=== PATIENT | female | born 1990 | race Two or more races ===

== ENCOUNTER 2018-04-04 20:00 | Observation (INO) | payer MEDICAID ==
[~2018-04-04 20:00] MED LIST: GLYB5TAB8 PO
[2018-04-04] MEDS ORDERED: GLYB2.5T8 PO (22:04)
== END 2018-04-04 21:35 | disposition home or self-care (01) | DRG 566 ==
LOC: LDRP 20:00
PROVIDERS: ADMIT Specialist; ATTEND Specialist
DX: O24.419 Gestational diabetes mellitus in pregnancy, unspecified control (principal); O26.893 Other specified pregnancy related conditions, third trimester; R10.9 Unspecified abdominal pain; Z3A.36 36 weeks gestation of pregnancy
CPT/HCPCS: 59025; 76818; 81002; 82948; 82962; G0378

== ENCOUNTER 2018-04-06 19:52 | Observation (INO) | payer MEDICAID ==
[~2018-04-06 19:52] MED LIST changes: +GLYB2.5T8 PO; -GLYB5TAB8 PO
== END 2018-04-06 21:35 | disposition home or self-care (01) | DRG 566 ==
LOC: LDRP 19:52
PROVIDERS: ADMIT Specialist; ATTEND Specialist
DX: O24.419 Gestational diabetes mellitus in pregnancy, unspecified control (principal); Z3A.36 36 weeks gestation of pregnancy
CPT/HCPCS: 59025; 76818; 81002; 82948; G0378

== ENCOUNTER 2018-04-11 20:08 | Observation (INO) | payer MEDICAID ==
[2018-04-11] MEDS ORDERED: PREN-153 OR (21:33)
== END 2018-04-11 21:11 | disposition home or self-care (01) | DRG 566 ==
LOC: LDRP 20:08
PROVIDERS: ADMIT Obstetrics & Gynecology; ATTEND Obstetrics & Gynecology
DX: O24.419 Gestational diabetes mellitus in pregnancy, unspecified control (principal); O62.9 Abnormality of forces of labor, unspecified; Z3A.37 37 weeks gestation of pregnancy
CPT/HCPCS: 59025; 76818; 81002; 82948; 82962; G0378

== ENCOUNTER 2018-04-15 20:36 | Observation (INO) | payer MEDICAID ==
[~2018-04-15 20:36] MED LIST changes: +PREN-153 OR
== END 2018-04-15 21:50 | disposition home or self-care (01) | DRG 563 ==
LOC: LDRP 20:36
PROVIDERS: ADMIT Specialist; ATTEND Specialist
DX: O60.03 Preterm labor without delivery, third trimester (principal); Z3A.37 37 weeks gestation of pregnancy
CPT/HCPCS: 59025; 76818; 81002; 82948; 82962; G0378

== ENCOUNTER 2018-04-18 19:46 | Observation (INO) | payer MEDICAID | END 2018-04-18 19:55 | disposition home or self-care (01) | DRG 566 | LOC: LDRP 19:46 | PROVIDERS: ADMIT Specialist; ATTEND Specialist | DX: O24.419 Gestational diabetes mellitus in pregnancy, unspecified control (principal); O62.9 Abnormality of forces of labor, unspecified; Z3A.38 38 weeks gestation of pregnancy | CPT/HCPCS: 59025; 76818; 81002; 82948; 82962; G0378 ==

== ENCOUNTER 2018-04-20 19:13 | Observation (INO) | payer MEDICAID | END 2018-04-20 20:20 | disposition home or self-care (01) | DRG 566 | LOC: LDRP 19:13 | PROVIDERS: ADMIT Specialist; ATTEND Specialist | DX: O24.419 Gestational diabetes mellitus in pregnancy, unspecified control (principal); O26.893 Other specified pregnancy related conditions, third trimester; R10.9 Unspecified abdominal pain; O62.9 Abnormality of forces of labor, unspecified; O99.89 Other specified diseases and conditions complicating pregnancy, childbirth and the puerperium; M54.9 Dorsalgia, unspecified; Z3A.38 38 weeks gestation of pregnancy | CPT/HCPCS: 59025; 76818; 81002; 82948; 82962; G0378 ==

== ENCOUNTER 2018-04-25 19:26 | Observation (INO) | payer MEDICAID | END 2018-04-25 20:32 | disposition home or self-care (01) | DRG 566 | LOC: LDRP 19:26 | PROVIDERS: ADMIT Specialist; ATTEND Specialist | DX: O24.419 Gestational diabetes mellitus in pregnancy, unspecified control (principal); O26.893 Other specified pregnancy related conditions, third trimester; N89.8 Other specified noninflammatory disorders of vagina; Z3A.39 39 weeks gestation of pregnancy | CPT/HCPCS: 59025; 76818; 81002; 82948; 82962; G0378 ==

== ENCOUNTER 2018-04-28 20:15 | Observation (INO) | payer MEDICAID | END 2018-04-28 21:15 | disposition home or self-care (01) | DRG 566 | LOC: LDRP 20:15 | PROVIDERS: ADMIT Obstetrics & Gynecology; ATTEND Obstetrics & Gynecology | DX: O24.419 Gestational diabetes mellitus in pregnancy, unspecified control (principal); O62.9 Abnormality of forces of labor, unspecified; Z3A.39 39 weeks gestation of pregnancy | CPT/HCPCS: 59025; 81002; 82948; 82962; G0378 ==

== ENCOUNTER 2018-04-29 21:24 | Inpatient (IN) | payer MEDICAID ==
[~2018-04-29] VITALS: Ht 160 cm; Wt 97.5 kg
[2018-04-29] MEDS ORDERED: LIDOCAINE 2% (LOCAL ANESTH.) PF 5ml SDV ID ONE (22:30)
[2018-04-29] MEDS ORDERED: CARBOPROST TROMETHAMINE 250 MCG/1ML VIAL IM PRN (22:30)
[2018-04-29] MEDS ORDERED: PHISODERM TOP SOLN 240ML BTL TOP PRN (22:30)
[2018-04-29] MEDS ORDERED: WITCH HAZEL-GLYCERIN PAD TOP PRN (22:30)
[2018-04-29] MEDS ORDERED: DERMOPLAST 60ML BOTTLE TOP PRN (22:30)
[2018-04-29] MEDS ORDERED: NALBUPHINE HCL 10 MG/1ml INJECTION IV PRN (22:30)
[2018-04-29] MEDS ORDERED: METHYLERGONOVINE MALEATE 0.2 MG/ML AMP IM PRN (22:30)
[2018-04-29] MEDS: LACTATED RINGER'S 1,000 ML IV SCH (22:34)
[2018-04-29] MEDS ORDERED: PENICILLIN G POT 5MIL/D5 50ML 50 ML IV ONE ×2 (22:45→22:53)
[2018-04-29 23:48] LABS: Basophils # (auto) 0.1 uL; Basophils % (auto) 1.1 % (0.0-2.0); Eosinophils # (auto) 0.2 uL; Hematocrit 32.7 % (36.0-46.0); Hemoglobin 10.8 g/dL (12.2-16.2); Lymphocytes # (auto) 2.5 uL; Lymphocytes % (auto) 27.8 % (10.0-50.0); Mean Corpuscular Hemoglobin 27.5 pg (28.0-32.0); Mean Corpuscular Volume 83.4 fL (80.0-100.0); Monocytes # (auto) 0.8 uL; Monocytes % (auto) 9.2 % (0.0-12.0); Neutrophils # (auto) 5.4 uL; Neutrophils % (auto) 59.9 % (37.0-80.0); Platelet Count (auto) 202 10^3/uL (140-450); Red Blood Cells 3.91 10^6/uL (4.0-5.20); Red Cell Distribution Width 14.9 % (11.8-14.3)
[2018-04-30 00:03] LABS: INR 0.86 (0.9-1.15); Partial Thromboplastin Time 26.5 sec (23.78-33.04); Prothrombin Time 9.3 sec (9.27-12.13)
[2018-04-30 00:06] LABS: Albumin 2.4 g/dL (3.4-5.0); BUN/Creatinine Ratio 13.4; Potassium 3.8 mmol/L (3.5-5.1)
[2018-04-30 00:09] LABS: Bilirubin, Total 0.6 mg/dL (0.2-1.0); Total Protein 6.3 g/dL (6.4-8.2)
[2018-04-30] MEDS ORDERED: LACT. RINGERS/OXYTOCIN 20UNITS 1,000 ML IV SCH (02:44)
[2018-04-30] MEDS: PENICILLIN G POTASSIUM 2,500,000 UNITS in D5W 5% 50 ML IV SCH ×3 (02:45→06:30)
[2018-04-30 02:47] LABS: Urine Bacteria MOD /hpf (None Seen); Urine Blood Negative /uL (Negative); Urine Specific Gravity 1.012 (1.001-1.035); Urine WBC 3 /hpf (0 - 5)
[2018-04-30] MEDS ORDERED: LACT. RINGERS/OXYTOCIN 20UNITS 1,000 ML IV ONE (02:49)
[2018-04-30] MEDS ORDERED: PENICILLIN G POT 5MILLION UNIT VIAL ONE (02:49)
[2018-04-30] MEDS ORDERED: LIDOCAINE HCL 2 %PF INJ 10ML AMP IJ ONE (04:15)
[2018-04-30] MEDS ORDERED: fentaNYL W ROPIVACAINE 150 ML EPI SCH (04:15)
[2018-04-30] MEDS ORDERED: ePHEDrine SULFATE 50 MG/ML AMP IV ONE ×3 (04:15→05:30)
[2018-04-30] MEDS ORDERED: NALOXONE HCL 0.4 MG/ML VIAL IV ONE ×2 (04:15→05:30)
[2018-04-30] MEDS ORDERED: fentaNYL CITRATE 100 MCG/2 ML VL IV ONE (04:15)
[2018-04-30] MEDS ORDERED: LIDOCAINE 2% (LOCAL ANESTH.) PF 5ml SDV ONE (04:58)
[2018-04-30] MEDS: LACTATED RINGER'S 1,000 ML IV SCH ×3 (05:30→22:21)
[2018-04-30] MEDS ORDERED: IBUPROFEN 600 MG TAB PO PRN ×2 (06:30→07:30)
[2018-04-30] MEDS ORDERED: NALBUPHINE HCL 10 MG/1ml INJECTION IV PRN (07:30)
[2018-04-30] MEDS: DOCUSATE CALCIUM 240 MG CAP PO SCH (10:30)
[2018-04-30 11:00] VITALS: BP 126/81
[2018-04-30 15:10] VITALS: BP 135/79
[2018-04-30 19:00] VITALS: BP 127/71
[2018-04-30] MEDS: ACCU-CHEK COMFORT CURVE STRIP VI SCH (22:00)
[2018-04-30] MEDS ORDERED: DOCUSATE SOD 100 MG CAP PO ONE ×2 (22:44→22:45)
[2018-04-30 22:57] VITALS: BP 125/66
[2018-05-01 03:00] VITALS: BP 121/62
[2018-05-01 07:00] VITALS: BP 114/70
[2018-05-01] MEDS: ACCU-CHEK COMFORT CURVE STRIP VI SCH (07:00)
[2018-05-01] MEDS: DOCUSATE CALCIUM 240 MG CAP PO SCH (09:49)
[2018-05-01] MEDS ORDERED: MEASLES, MUMPS & RUBELLA VAC(MMRII) 0.5ML SC ONE (11:00)
[2018-05-02 05:06] LABS: RPR Non Reactive (Non Reactive)
== END 2018-05-01 10:05 | disposition home or self-care (01) | DRG 560 ==
LOC: LDRP 21:24
PROVIDERS: ADMIT Specialist; ATTEND Specialist
PROC: 10E0XZZ Delivery of Products of Conception, External Approach (ICD-10-PCS; principal; 2018-04-30)
PROC: 10907ZC Drainage of Amniotic Fluid, Therapeutic from Products of Conception, Via Natural or Artificial Opening (ICD-10-PCS; 2018-04-30)
PROC: 0W8NXZZ Division of Female Perineum, External Approach (ICD-10-PCS; 2018-04-30)
PROC: 3E0R3BZ Introduction of Anesthetic Agent into Spinal Canal, Percutaneous Approach (ICD-10-PCS; 2018-04-30)
PROC: 00HU33Z Insertion of Infusion Device into Spinal Canal, Percutaneous Approach (ICD-10-PCS; 2018-04-30)
DX: O99.824 Streptococcus B carrier state complicating childbirth (principal); O24.429 Gestational diabetes mellitus in childbirth, unspecified control; Z37.0 Single live birth; Z3A.40 40 weeks gestation of pregnancy; O69.81X0 Labor and delivery complicated by cord around neck, without compression, not applicable or unspecified; Z23 Encounter for immunization
CPT/HCPCS: 36415; 51702; 59025; 59409; 62282; 80053; 81001; 82948; 82962; 85025; 85610; 85730; 86592; 86850; 86900; 86901; 90471; 94762; 96365; 96366; A6257; J2001; J2540; J2590; J3010; J7060